=== PATIENT | male | born 1970 | race Two or more races ===

== ENCOUNTER 2017-06-03 02:14 | Emergency (ER) | payer MEDICAID ==
[~2017-06-03] VITALS: Ht 177.8 cm; Wt 95.3 kg
[2017-06-03] MEDS ORDERED: Thiamine HCl 100 MG in D5W 55 ML IVPB ONE (02:30)
[2017-06-03] MEDS ORDERED: LORazepam Inj 2mg/ml 1ml IV ONE (02:30)
[2017-06-03 02:35] VITALS: BP 163/87
[2017-06-03] MEDS ORDERED: Thiamine HCl 100mg/ml Inj ONE (02:55)
[2017-06-03 03:11] LABS: BASOPHILS % (AUTO) 1.5 % (0.0-2.0); EOSINOPHILS % (AUTO) 1.8 % (0.0-3.0); LYMPHOCYTES % (AUTO) 20.5 % (20.0-45.0); MEAN CORPUSCULAR HEMOGLOBIN 29.7 PG (27.0-31.0); MEAN CORPUSCULAR HGB CONC 32.4 G/DL (32.0-36.0); MEAN CORPUSCULAR VOLUME 92 FL (80-99); MEAN PLATELET VOLUME 6.7 FL (6.5-10.1); MONOCYTES % (AUTO) 9.5 % (1.0-10.0); NEUTROPHILS % (AUTO) 66.7 % (45.0-75.0); PLATELET COUNT 182 K/UL (150-450); RED BLOOD COUNT 4.82 M/UL (4.70-6.10); RED CELL DISTRIBUTION WIDTH 13.9 % (11.6-14.8); WHITE BLOOD COUNT 9.1 K/UL (4.8-10.8)
--- NOTE | 2017-06-03 03:12 | Emergency Room Report ---
History of Present Illness General Chief Complaint: General Complaint Source: Patient Present Illness HPI Patient's 46-year-old male presented after having increased generalized headache as well shakiness. Patient had a prior history of alcohol abuse. He reports having alcohol this morning. Patient had began having increased shakiness as well as generalized headache. The patient had previous symptoms with prior stoppages of alcohol. He reports drinking daily Allergies: Coded Allergies: No Known Allergies (Unverified , 06/03/17) Patient History Past Medical History: see triage record Reviewed Nursing Documentation: PMH: Agreed, PSxH: Agreed Nursing Documentation-PMH Past Medical History: No History, Except For Hx Diabetes: Yes Review of Systems All Other Systems: negative except mentioned in HPI Physical Exam Vital Signs Date Time Temp Pulse Resp B/P Pulse Ox O2 Delivery O2 Flow Rate FiO2 06/03/17 02:16 98.6 90 16 173/100 99 Room Air Sp02 EP Interpretation: reviewed, normal General Appearance: normal inspection, well appearing, alert, GCS 15, non-toxic , mild distress Head: atraumatic ENT: normal ENT inspection, hearing grossly normal, normal voice Neck: normal inspection, full range of motion, supple, no bony tend Respiratory: normal inspection, lungs clear, normal breath sounds, no respiratory distress, no retraction, no wheezing Cardiovascular #1: regular rate, rhythm, no edema Gastrointestinal: normal inspection, normal bowel sounds, non tender, soft, no guarding, no hernia Genitourinary: no CVA tenderness Musculoskeletal: normal inspection, back normal, normal range of motion Neurologic: normal inspection, alert, oriented x3, responsive, speech normal, other - tremor, oriented Psychiatric: normal inspection, judgement/insight normal, mood/affect normal Skin: normal inspection, normal color, no rash Medical Decision Making Diagnostic Impression: Primary Impression: Alcohol withdrawal ER Course Patient presented for headache. The differential diagnosis included was not limited to arrhythmia, thyroid storm, sepsis, anemia, myocardial infarction, alcohol withdrawal, stimulant abuse, caffeine overdose among others. Because of complexity of patient's case laboratory testing and imaging studies were ordered. The patient given IV Ativan for presumed withdrawal. He appears to be somewhat tremulous. The patient said this has worked well from in the past.The patient had improvement of symptoms after Ativan. He was given prescriptions for Ativan.The patient is advised to follow up with primary care doctor in 1-2 days. Patient is advised to return if any worsening condition or if any changes in status that are concerning. Last Vital Signs Date Time Temp Pulse Resp B/P Pulse Ox O2 Delivery O2 Flow Rate FiO2 06/03/17 02:16 98.6 90 16 173/100 99 Room Air Status: improved Disposition: HOME, SELF-CARE Condition: Stable Scripts Lorazepam* (ATIVAN*) 1 Mg Tablet 1 MG ORAL THREE TIMES A DAY, #14 TAB Prov: Deejay Kapoor 06/03/17 Deejay Kapoor Jun 03, 2017 03:12
[2017-06-03 03:21] LABS: INR 1.2 (0.9-1.1); PROTHROMBIN TIME 12.4 SEC (9.30-11.50)
[2017-06-03 03:26] LABS: ALANINE AMINOTRANSFERASE 13 U/L (3-41); ALBUMIN/GLOBULIN RATIO 0.8 (1.0-2.7); ANION GAP 18 (5-15); ASPARTATE AMINO TRANSFERASE 40 U/L (5-40); CALCIUM 8.6 mg/dL (8.6-10.2); CARBON DIOXIDE 26 mEQ/L (20-30); CHLORIDE 95 mEQ/L (98-107); CREATININE 0.6 mg/dL (0.7-1.2); GLOMERULAR FILTRATION RATE > 60 mL/min (>60); HEMOLYSIS 10; POTASSIUM 3.7 mEQ/L (3.4-4.9); SODIUM 139 mEQ/L (135-145); TOTAL PROTEIN 8.5 g/dL (6.6-8.7)
[2017-06-03 04:13] VITALS: BP 137/74
[2017-06-03] MEDS ORDERED: ATIVAN1 MG ORAL (04:36)
[2017-06-03 04:44] VITALS: BP 137/74
== END 2017-06-03 04:44 | disposition home or self-care (01) ==
LOC: EDBD 02:14 → EMR 03:00
DX: F10.239 Alcohol dependence with withdrawal, unspecified (principal); E11.9 Type 2 diabetes mellitus without complications
CPT/HCPCS: 36415; 80053; 85025; 85610; 85730; 96374; 96375